=== PATIENT | female | born 1955 | race Caucasian/White ===

== ENCOUNTER 2019-01-11 10:49 | Inpatient (IN) | payer MEDICARE ==
--- NOTE | 2019-01-11 11:45 | RAD ---
Exam: Chest one view HISTORY:Fever and chills Comparison: 09/27/2009 FINDINGS: Lungs: Interstitial prominence bilaterally Cardiac silhouette:Accentuated by rotation and portable technique Pulmonary vessels: Mild prominence of pulmonary vasculature Pleural Spaces: Clear Pneumothorax: None Osseous abnormalities: None of acuity. IMPRESSION: Findings favor mild fluid overload. Correlate for evidence of CHF.
[2019-01-11] MEDS ORDERED: Azithromycin 500 MG VIAL ONE (12:09)
[2019-01-11] MEDS ORDERED: Acetaminophen 500 MG TAB ONE (12:09)
[2019-01-11] MEDS ORDERED: cefTRIAXone\\ROCEPHIN 2 GM VIAL ONE (12:09)
[2019-01-11 12:23] LABS: #Monocytes 0.7 thou/uL (0.11-0.59); #Neutrophils 6.4 thou/uL (1.40-6.50); %Basophils 0.1 % (0.0-1.0); %Eosinophils 0.2 % (0.0-10.0); %Lymphocytes 12.2 % (21.0-51.0); %Monocytes 8.4 % (0.0-10.0); %Neutrophils 79.1 % (42.0-75.0); Hemoglobin 11.2 g/dL (12.0-16.0); Mean Corpuscular HGB CONC 33.8 g/dL (32.0-36.0); Mean Corpuscular Hemoglobin 28.7 pg (27.0-31.0); Mean Corpuscular Volume 84.9 fL (78.0-98.0); Mean Platelet Volume 7.2 fL (7.4-10.4); Platelet Count 193 thou/uL (130-400); Red Blood Cell (RBC) Count 3.89 mill/uL (4.20-5.40); White Blood Cell (WBC) Count 8.1 thou/uL (4.8-10.8)
[2019-01-11 12:51] LABS: ALT (SGPT) 16 U/L (8-55); AST (SGOT) 21 U/L (5-34); Albumin 4.2 g/dL (3.4-4.8); Alkaline Phosphatase 96 U/L (40-110); Anion Gap 14 mmol/L (10-20); BUN (Urea Nitrogen) 8 mg/dL (9.8-20.1); Bilirubin, Total 0.8 mg/dL (0.2-1.2); Calc. Creatinine Clearance 0 mL/min (70-130); Calcium 9.1 mg/dL (7.8-10.44); Carbon Dioxide 24 mmol/L (23-31); Chloride 96 mmol/L (98-107); Estimated GFR-MDRD 69; Globulin 3.5 g/dL (2.4-3.5); Glucose 191 mg/dL (80-115); Lipase 47 U/L (8-78); Potassium 3.5 mmol/L (3.5-5.1); Protein, Total 7.7 g/dL (6.0-8.3); Sodium 130 mmol/L (136-145)
[2019-01-11] MEDS ORDERED: Iopamidol 370 76% 100 ML VIAL ONE (12:59)
[2019-01-11] MEDS ORDERED: Bisacodyl 5 MG TAB PO PRN (13:31)
[2019-01-11] MEDS ORDERED: Bisacodyl 10 MG SUPP PR PRN (13:31)
[2019-01-11] MEDS ORDERED: Ondansetron PF 4 MG/2 ML Vial IVP PRN (13:31)
[2019-01-11] MEDS ORDERED: Ondansetron ODT 4 MG TAB PO PRN (13:31)
[2019-01-11] MEDS ORDERED: Loperamide HCl 2 MG CAP PO PRN (13:31)
[2019-01-11] MEDS ORDERED: Labetalol HCl 100 MG/20 ML VIAL SLOW IVP PRN (13:35)
[2019-01-11] MEDS ORDERED: Melatonin 3 MG TAB PO PRN (13:35)
[2019-01-11 13:36] LABS: Bacteria/HPF None Seen HPF (None Seen); Bilirubin Negative (Negative); Blood, Urine 1+ (Negative); Clarity Clear (Clear); Glucose, Urine (Dipstick) Normal (Negative); Leukocyte Negative Leu/uL (Negative); Nitrite Negative (Negative); Protein, Urine (Dipstick) Negative (Neg-Trace); RBC/HPF 0-3 HPF (0-3); Squamous Epithelial None Seen HPF (0-3); Urobilinogen Normal mg/dL (Less than 2); WBC/HPF 0-3 HPF (0-3)
[2019-01-11] MEDS ORDERED: Sodium Chloride 0.9% 1,000 ML IV SCH (13:45)
[2019-01-11] MEDS ORDERED: cefTRIAXone Sodium 2 MG in Syringe 0 ML IVPB SCH (13:45)
--- NOTE | 2019-01-11 15:16 | CT ---
CT arteriogram chest with IV contrast and 3-D imaging HISTORY: Dyspnea. Chest pain. Fever. FINDINGS: There is good contrast opacification pulmonary arteries and thoracic aorta with normal bran virgil of the great vessels at the aortic arch. No mediastinal adenopathy or pleural fluid evident. Very subtle patchy scattered areas of groundglass parenchymal opacity involving each lung. No lobar c onsolidation or pneumothorax. IMPRESSION: No CT evidence of pulmonary embolus.
[2019-01-11 15:39] LABS: Lactic Acid 1.5 mmol/L (0.5-2.2)
[2019-01-11 17:12] VITALS: BMI 42.1
--- NOTE | 2019-01-11 18:21 | PDOC.HHP ---
Hospitalist HPI - History of Present Illness Fever, chill, cough History of Present Illness: 63-year-old female with past medical history of diabetes, hypertension, hyperlipidemia, and hypothyroidism presents with several days of worsening fever , chills, cough and lower extremity swelling. Patient states that she has been around her grandson who lives with her and he has been sick. Patient with worsening fever, chills, cough with clear productive sputum, and generalized malaise over the past several days. Patient also has had worsening lower extremity leg swelling. Today patient presented [facility] and she is found have a blood sugar of 30, patient was sent over for higher level of care. The patient does take Metformin and has had poor oral intake over the last several days. I find the patient on the medical unit she is sitting upright in bed breathing well on room air. Patient states that she is feeling significantly better after receiving IV fluids and IV antibiotics. Patient had a CTA scan of the chest, please see full report for details, there is no pulmonary embolism identified though there are bilateral groundglass opacity suggestive of walking pneumonia. Patient admitted to medical unit for further evaluation and treatment. Hospitalist ROS - Review of Systems All other systems reviewed; all pertinent +/- noted in HPI/Subj Hospitalist History - Past Medical History Source: patient Cardiac: reports: HTN. denies: CAD, CHF, Syncope Pulmonary: reports: high cholesterol, hypertension. denies: CVA/TIA/stroke, congestive heart failure, COPD, emphysema, lung disease, pulmonary embolism [employer]: denies: CVA, TIA Heme/Onc: denies: Cancer Hepatobiliary: denies: Hep A/B/C Psych: denies: Depression Musculoskeletal: reports: Osteoarthritis. denies: Other Rheumatologic: denies: Other Infectious Disease: denies: HIV ENT: reports: Allergic rhinitis Renal/: denies: Chronic renal insuff Endocrine: reports: Diabetes, Hypothyroidism - Past Surgical History Past Surgical History: reports: Cholecystectomy, Tubal Ligation, Tonsillectomy, Other (Left hip replacement) - Family History Family History: reports: diabetes mellitus - Social History Smoking Status: Former smoker (Quit over 10 years ago, denies diagnosis of COPD/ emphysema) Alcohol: reports: Rare Drugs: reports: none Living Situation: With Family Domestic Violence: Negative Activity level: independent ambulation - Exam General Appearance: NAD, awake alert Eye: PERRL, anicteric sclera ENT: normocephalic atraumatic, moist mucosa Neck: supple, symmetric, no lymphadenopathy Heart: RRR, no murmur, no gallops, no rubs Respiratory: no rales, no ronchi, normal chest expansion, no tachypnea, wheezes (very faint. Overall deminished breath sounds bilaterally secondary to body habitus) Gastrointestinal: soft, non-tender, no guarding, no rigidity Extremities - other findings: 3+ LE edema bilaterally Skin: no lesions, no rashes Neurological: cranial nerve grossly intact, normal sensation to touch, no focal deficits Musculoskeletal: normal tone, no muscle wasting, generalized weakness Psychiatric: normal affect, normal behavior, A&O x 3 Hospitalist Results - Labs Result Diagrams: 01/11/19 12:08 01/11/19 12:08 Lab results: WBC 8.1 thou/uL (4.8-10.8) 01/11/19 12:08 Hgb 11.2 g/dL (12.0-16.0) L 01/11/19 12:08 Hct 33.0 % (36.0-47.0) L 01/11/19 12:08 MCV 84.9 fL (78.0-98.0) 01/11/19 12:08 Plt Count 193 thou/uL (130-400) 01/11/19 12:08 Neutrophils % 79.1 % (42.0-75.0) H 01/11/19 12:08 Sodium 130 mmol/L (136-145) L 01/11/19 12:08 Potassium 3.5 mmol/L (3.5-5.1) 01/11/19 12:08 Chloride 96 mmol/L (98-107) L 01/11/19 12:08 Carbon Dioxide 24 mmol/L (23-31) 01/11/19 12:08 BUN 8 mg/dL (9.8-20.1) L 01/11/19 12:08 Creatinine 0.83 mg/dL (0.6-1.1) 01/11/19 12:08 Glucose 191 mg/dL (80-115) H 01/11/19 12:08 Lactic Acid 1.5 mmol/L (0.5-2.2) 01/11/19 15:13 Calcium 9.1 mg/dL (7.8-10.44) 01/11/19 12:08 Total Bilirubin 0.8 mg/dL (0.2-1.2) 01/11/19 12:08 AST 21 U/L (5-34) 01/11/19 12:08 ALT 16 U/L (8-55) 01/11/19 12:08 Alkaline Phosphatase 96 U/L (40-110) 01/11/19 12:08 B-Natriuretic Peptide 113.2 pg/mL (0-100) H 01/11/19 12:08 Serum Total Protein 7.7 g/dL (6.0-8.3) 01/11/19 12:08 Albumin 4.2 g/dL (3.4-4.8) 01/11/19 12:08 Lipase 47 U/L (8-78) 01/11/19 12:08 Urine Ketones Negative mg/dL (Negative) 01/11/19 13:10 Urine Blood 1+ (Negative) A 01/11/19 13:10 Urine Nitrite Negative (Negative) 01/11/19 13:10 Ur Leukocyte Esterase Negative Cristofer/uL (Negative) 01/11/19 13:10 Urine RBC 0-3 HPF (0-3) 01/11/19 13:10 Urine WBC 0-3 HPF (0-3) 01/11/19 13:10 Ur Squamous Epith Cells None Seen HPF (0-3) 01/11/19 13:10 Urine Bacteria None Seen HPF (None Seen) 01/11/19 13:10 - Radiology Interpretation CT scan - chest Status: image reviewed by ri Chest x-ray Status: image reviewed by ri Hospitalist H&P A/P - Problem (1) Community acquired bacterial pneumonia Code(s): J15.9 - UNSPECIFIED BACTERIAL PNEUMONIA Status: Acute (2) Walking pneumonia Code(s): J18.9 - PNEUMONIA, UNSPECIFIED ORGANISM Status: Acute (3) Shortness of breath Code(s): R06.02 - SHORTNESS OF BREATH Status: Acute (4) Cough Code(s): R05 - COUGH Status: Acute (5) Leg edema Code(s): R60.0 - LOCALIZED EDEMA Status: Acute (6) Fever Code(s): R50.9 - FEVER, UNSPECIFIED Status: Acute (7) DM (diabetes mellitus), secondary uncontrolled Code(s): E13.65 - OTHER SPECIFIED DIABETES MELLITUS WITH HYPERGLYCEMIA Status : Acute (8) HTN (hypertension) Code(s): I10 - ESSENTIAL (PRIMARY) HYPERTENSION Status: Acute (9) HLD (hyperlipidemia) Code(s): E78.5 - HYPERLIPIDEMIA, UNSPECIFIED Status: Acute (10) Hypothyroid Code(s): E03.9 - HYPOTHYROIDISM, UNSPECIFIED Status: Acute (11) Osteoarthritis Code(s): M19.90 - UNSPECIFIED OSTEOARTHRITIS, UNSPECIFIED SITE Status: Acute (12) Obesity Code(s): E66.9 - OBESITY, UNSPECIFIED Status: Acute - Plan Plan: Plan: admit to medical unit IV antibiotics IV fluids to avoid contrast induced nephropathy inhaled breathing treatments scheduled and as needed echocardiogram to evaluate for congestive heart failure BMP only minorly elevated at 113 denies history of cardiac events and denies stent/myocardial infarction/or congestive heart failure in the past lower extremity swelling, and ultrasound lower extremity to roulette DVT blood pressure control blood sugar control insulin sliding-scale low G.I. and DVT prophylaxis continue other home medications as able
[2019-01-11] MEDS ORDERED: HumaLOG 300 UNITS/3 ML VIAL SC PRN (18:32)
[2019-01-11] MEDS ORDERED: Dextrose 5% in Water 1,000 ML IV PRN (18:32)
[2019-01-11] MEDS ORDERED: Dextrose 50% Abboject 50 ML SYRINGE SLOW IVP PRN (18:32)
[2019-01-11] MEDS: HYDROcodone/Acetaminophen 5/325 mg Tablet PO PRN (20:07)
[2019-01-11] MEDS: Famotidine 20 MG TAB PO SCH (20:08)
[2019-01-11] MEDS: Sodium Chloride 0.9% 1,000 ML IV SCH (20:09)
[2019-01-11] MEDS ORDERED: Ibuprofen 200 MG TAB PO PRN (22:59)
[2019-01-11] MEDS ORDERED: Morphine 2 MG/ML SYRINGE SLOW IVP PRN (23:00)
[2019-01-12 06:17] LABS: #Lymphocytes 1.1 thou/uL (1.20-3.40); #Monocytes 0.6 thou/uL (0.11-0.59); #Neutrophils 4.6 thou/uL (1.40-6.50); %Eosinophils 0.3 % (0.0-10.0); %Lymphocytes 17.4 % (21.0-51.0); %Monocytes 8.9 % (0.0-10.0); %Neutrophils 73.5 % (42.0-75.0); Hemoglobin 9.5 g/dL (12.0-16.0); Mean Corpuscular HGB CONC 34.2 g/dL (32.0-36.0); Mean Corpuscular Hemoglobin 29.2 pg (27.0-31.0); Mean Corpuscular Volume 85.4 fL (78.0-98.0); Mean Platelet Volume 7.8 fL (7.4-10.4); Platelet Count 153 thou/uL (130-400); RBC Distribution Width 12.8 % (11.5-14.5); Red Blood Cell (RBC) Count 3.25 mill/uL (4.20-5.40); White Blood Cell (WBC) Count 6.3 thou/uL (4.8-10.8)
[2019-01-12 06:50] LABS: Anion Gap 13 mmol/L (10-20); BUN (Urea Nitrogen) 6 mg/dL (9.8-20.1); Calc. Creatinine Clearance 65 mL/min (70-130); Carbon Dioxide 18 mmol/L (23-31); Chloride 102 mmol/L (98-107); Estimated GFR-MDRD 87; Glucose 137 mg/dL (80-115); Potassium 3.5 mmol/L (3.5-5.1); Sodium 129 mmol/L (136-145)
--- NOTE | 2019-01-12 07:46 | ULT ---
EXAM: Bilateral lower extremity venous ultrasound HISTORY: Bilateral lower extremity pain and edema COMPARISON: None TECHNIQUE: Multiplanar grayscale and color Doppler images were obtained in a bilateral lower extremit y venous ultrasound. Spectral analysis of the Doppler waveforms were performed. FINDINGS: The bilateral common femoral vein, profunda femoral veins, superficial femoral veins, and p opliteal veins are normal in appearance without visible thrombus. These vessels demonstrate normal compression, flow, and augmentation. The bilateral posterior tibial veins and greater saphenous veins are patent without evidence of throm bus. IMPRESSION: No evidence of DVT.
[2019-01-12] MEDS: Famotidine 20 MG TAB PO SCH ×2 (08:09→20:18)
[2019-01-12] MEDS: HYDROcodone/Acetaminophen 7.5/325 mg Tablet PO PRN ×4 (08:15→21:37)
[2019-01-12] MEDS ORDERED: FLU VACC TS2019-20(65YR UP)/PF 180 MCG/0.5 ML SYRINGE IM ONE (09:00)
[2019-01-12] MEDS: cefTRIAXone\\ROCEPHIN 2 GM in Sodium Chloride 0.9% 100 ML IVPB SCH (11:36)
[2019-01-12] MEDS: Sodium Chloride 0.9% 1,000 ML IV SCH (11:36)
--- NOTE | 2019-01-12 15:11 | PDOC.HOSPP ---
- Subjective Subjective: Seen and examined. Patient's having more pulmonary symptoms today, struggling more to breathe and having some wheezing. Though she is saturating well. Feeling fever and chills. Patient elevated her legs overnight like I instructed her, less lower extremity edema this a.m. Ultrasound lower extremity negative for DVT. Echocardiogram pending. All questions answered in detail. - Objective Vital Signs & Weight: Vital Signs (12 hours) Temp Pulse Pulse Resp BP BP Pulse Ox 01/12/19 12:00 100.4 F H 80 20 125/74 94 L 01/12/19 08:20 90 116/58 L 01/12/19 08:00 99.0 F 91 20 116/58 L 99 01/12/19 04:00 99.3 F 91 18 97/63 93 L Pulse Ox 01/12/19 12:00 01/12/19 08:20 100 01/12/19 08:00 01/12/19 04:00 Weight Admit Weight 230 lb 5.12 oz Weight 230 lb 5.12 oz I&O: 01/11/19 01/12/19 01/13/19 06:59 06:59 06:59 Intake Total 2200 Balance 2200 Result Diagrams: 01/12/19 05:46 01/12/19 05:46 Additional Labs: Accuchecks 01/12/19 01/12/19 01/11/19 11:40 04:13 22:01 POC Glucose 137 H 145 H 189 H 01/11/19 18:42 POC Glucose 164 H Radiology Reviewed by me: Yes Hospitalist ROS - Review of Systems All other systems reviewed; all pertinent +/- noted in HPI/Subj - Medication Medications: Active Medications Generic Name Dose Route Start Last Admin Trade Name Freq PRN Reason Stop Dose Admin Hydrocodone Bitart/Acetaminophen 1 tab 01/11/19 13:31 01/11/19 20:07 [place] 5/325 PO 1 tab Q4H PRN Administration Moderate Pain (4-6) Hydrocodone Bitart/Acetaminophen 1 tab 01/11/19 13:31 01/12/19 11:44 [place] 7.5/325 PO 1 tab Q4H PRN Administration Severe Pain (7-10) Famotidine 20 mg 01/11/19 21:00 01/12/19 08:09 Pepcid PO 20 mg BID BILL Administration Ceftriaxone Sodium 2 gm/ 100 mls @ 200 mls/hr 01/12/19 12:00 01/12/19 11:36 Sodium Chloride IVPB 100 mls 1200 BILL Administration - Exam General Appearance: awake alert, ill appearing Eye: PERRL ENT: normocephalic atraumatic, moist mucosa Neck: supple, symmetric, no lymphadenopathy Heart: RRR, no murmur, no gallops, no rubs Respiratory: no rales, no ronchi, normal chest expansion, wheezes (diffuse faint wheezing) Gastrointestinal: soft, non-tender, non-distended, no guarding, no rigidity Extremities: 2+ LE edema (improving) Skin - other findings: LE errythema/ cellulitis - mild - associated with swelling Neurological: cranial nerve grossly intact, normal sensation to touch, no focal deficits Musculoskeletal: generalized weakness Psychiatric: normal affect, A&O x 3 Hosp A/P (1) Community acquired bacterial pneumonia Code(s): J15.9 - UNSPECIFIED BACTERIAL PNEUMONIA Status: Acute (2) Walking pneumonia Code(s): J18.9 - PNEUMONIA, UNSPECIFIED ORGANISM Status: Acute (3) Shortness of breath Code(s): R06.02 - SHORTNESS OF BREATH Status: Acute (4) Cough Code(s): R05 - COUGH Status: Acute (5) Leg edema Code(s): R60.0 - LOCALIZED EDEMA Status: Acute (6) Fever Code(s): R50.9 - FEVER, UNSPECIFIED Status: Acute (7) DM (diabetes mellitus), secondary uncontrolled Code(s): E13.65 - OTHER SPECIFIED DIABETES MELLITUS WITH HYPERGLYCEMIA Status : Acute (8) HTN (hypertension) Code(s): I10 - ESSENTIAL (PRIMARY) HYPERTENSION Status: Acute (9) HLD (hyperlipidemia) Code(s): E78.5 - HYPERLIPIDEMIA, UNSPECIFIED Status: Acute (10) Hypothyroid Code(s): E03.9 - HYPOTHYROIDISM, UNSPECIFIED Status: Acute (11) Osteoarthritis Code(s): M19.90 - UNSPECIFIED OSTEOARTHRITIS, UNSPECIFIED SITE Status: Acute (12) Obesity Code(s): E66.9 - OBESITY, UNSPECIFIED Status: Acute - Plan Plan: medical unit continue IV antibiotics blood culture urine culture De escalate to culture and sensitivity as able DC IV fluids to avoid volume overload, has been resuscitated and no contrast induced nephropathy have been observed renal function stable echocardiogram to evaluate for congestive heart failure BNP only minorly elevated at 113 denies history of cardiac events and denies stent/myocardial infarction/ congestive heart failure in the past lower extremity swelling ultrasound negative for DVT blood pressure control blood sugar control insulin sliding-scale low G.I. and DVT prophylaxis continue other home medications as able
[2019-01-12] MEDS: Azithromycin 250 MG in Sodium Chloride 0.9% 250 ML 250 ML IVPB SCH (15:23)
[2019-01-12] MEDS: Acetaminophen 325 MG TAB PO PRN ×2 (15:42→20:19)
[2019-01-12] MEDS: diphenhydrAMINE 25 MG CAP PO PRN (21:38)
[2019-01-13] MEDS: Acetaminophen 325 MG TAB PO PRN ×2 (05:09→18:09)
[2019-01-13 05:44] LABS: Anion Gap 13 mmol/L (10-20); BUN (Urea Nitrogen) 5 mg/dL (9.8-20.1); Calc. Creatinine Clearance 127 mL/min (70-130); Calcium 8.2 mg/dL (7.8-10.44); Carbon Dioxide 17 mmol/L (23-31); Chloride 105 mmol/L (98-107); Estimated GFR-MDRD 80; Glucose 167 mg/dL (80-115); Potassium 3.8 mmol/L (3.5-5.1); Sodium 131 mmol/L (136-145)
[2019-01-13] MEDS: HumaLOG 300 UNITS/3 ML VIAL SC PRN ×2 (05:49→13:19)
[2019-01-13 05:52] LABS: Band 20 % (5-11); Lymphocytes 19 % (21-51); MDiff Complete? YES; Mean Corpuscular HGB CONC 33.3 g/dL (32.0-36.0); Mean Corpuscular Hemoglobin 28.6 pg (27.0-31.0); Mean Platelet Volume 7.8 fL (7.4-10.4); Monocytes 2 % (0-10); Neutrophil 59 % (42-75); Platelet Count 152 thou/uL (130-400); Red Blood Cell (RBC) Count 3.51 mill/uL (4.20-5.40); White Blood Cell (WBC) Count 5.2 thou/uL (4.8-10.8)
[2019-01-13] MEDS: HYDROcodone/Acetaminophen 7.5/325 mg Tablet PO PRN ×2 (07:23→20:34)
[2019-01-13] MEDS: diphenhydrAMINE 25 MG CAP PO PRN ×2 (07:23→20:33)
[2019-01-13] MEDS: Famotidine 20 MG TAB PO SCH ×2 (08:36→20:34)
--- NOTE | 2019-01-13 11:58 | PDOC.HOSPP ---
- Subjective Subjective: Seen and examined. Patient states that overall she is feeling better, though she is still symptomatic from fever and chills. Found to be bacteremic with one out of two blood cultures being positive for Gram-positive cocci in clusters. Will repeat blood cultures to ensure sterilization of the blood versus possible contaminant. - Objective Vital Signs & Weight: Vital Signs (12 hours) Temp Pulse Resp BP Pulse Ox 01/13/19 11:29 100.0 F H 93 20 105/52 L 95 01/13/19 07:54 101.8 F H 99 20 102/66 95 01/13/19 06:00 98.5 F 01/13/19 04:30 102.1 F H 105 H 18 143/75 H 94 L 01/13/19 00:00 99.0 F 87 18 104/68 94 L Weight Admit Weight 230 lb 5.12 oz Weight 230 lb 5.12 oz I&O: 01/12/19 01/13/19 01/14/19 06:59 06:59 06:59 Intake Total 2199 2039 Balance 2199 2039 Result Diagrams: 01/13/19 04:58 01/13/19 04:58 Additional Labs: Accuchecks 01/13/19 01/12/19 01/12/19 05:01 19:23 16:22 POC Glucose 185 H 173 H 131 H Radiology Reviewed by me: Yes Hospitalist ROS - Review of Systems All other systems reviewed; all pertinent +/- noted in HPI/Subj - Medication Medications: Active Medications Generic Name Dose Route Start Last Admin Trade Name Freq PRN Reason Stop Dose Admin Acetaminophen 650 mg 01/11/19 13:31 01/13/19 05:09 Tylenol PO 650 mg Q4H PRN Administration Headache/Fever/Mild Pain (1-3) Hydrocodone Bitart/Acetaminophen 1 tab 01/11/19 13:31 01/11/19 20:07 [place] 5/325 PO 1 tab Q4H PRN Administration Moderate Pain (4-6) Hydrocodone Bitart/Acetaminophen 1 tab 01/11/19 13:31 01/13/19 07:23 [place] 7.5/325 PO 1 tab Q4H PRN Administration Severe Pain (7-10) Diphenhydramine HCl 25 mg 01/11/19 13:35 01/13/19 07:23 Benadryl PO 25 mg Q6H PRN Administration Itching & Insomnia Famotidine 20 mg 01/11/19 21:00 01/13/19 08:36 Pepcid PO 20 mg BID BILL Administration Azithromycin 250 mg/ Sodium 250 mls @ 250 mls/hr 01/12/19 15:00 01/12/19 15: 23 Chloride IVPB 250 mls 1500 BILL Administration Ceftriaxone Sodium 2 gm/ 100 mls @ 200 mls/hr 01/12/19 12:00 01/12/19 11:36 Sodium Chloride IVPB 100 mls 1200 BILL Administration Insulin Human Lispro 0 units 01/11/19 18:32 01/13/19 05:49 Humalog SC 2 unit .MILD SLIDING SCALE PRN Administration Mild Correctional Scale - Exam General Appearance: NAD, awake alert Eye: anicteric sclera ENT: normocephalic atraumatic, moist mucosa Neck: supple, symmetric, no lymphadenopathy Heart: RRR, no murmur, no gallops, no rubs Respiratory: CTAB, no rales, no ronchi, no tachypnea, wheezes Gastrointestinal: soft, non-tender, normal bowel sounds, no guarding, no rigidity Extremities: 1+ LE edema (improving) Skin: no lesions, no rashes Neurological: cranial nerve grossly intact, normal sensation to touch, no focal deficits Musculoskeletal: generalized weakness Psychiatric: normal affect, A&O x 3 Hosp A/P (1) Community acquired bacterial pneumonia Code(s): J15.9 - UNSPECIFIED BACTERIAL PNEUMONIA Status: Acute (2) Walking pneumonia Code(s): J18.9 - PNEUMONIA, UNSPECIFIED ORGANISM Status: Acute (3) Shortness of breath Code(s): R06.02 - SHORTNESS OF BREATH Status: Acute (4) Cough Code(s): R05 - COUGH Status: Acute (5) Leg edema Code(s): R60.0 - LOCALIZED EDEMA Status: Acute (6) Fever Code(s): R50.9 - FEVER, UNSPECIFIED Status: Acute (7) DM (diabetes mellitus), secondary uncontrolled Code(s): E13.65 - OTHER SPECIFIED DIABETES MELLITUS WITH HYPERGLYCEMIA Status : Acute (8) HTN (hypertension) Code(s): I10 - ESSENTIAL (PRIMARY) HYPERTENSION Status: Acute (9) HLD (hyperlipidemia) Code(s): E78.5 - HYPERLIPIDEMIA, UNSPECIFIED Status: Acute (10) Hypothyroid Code(s): E03.9 - HYPOTHYROIDISM, UNSPECIFIED Status: Acute (11) Osteoarthritis Code(s): M19.90 - UNSPECIFIED OSTEOARTHRITIS, UNSPECIFIED SITE Status: Acute (12) Obesity Code(s): E66.9 - OBESITY, UNSPECIFIED Status: Acute - Plan Plan: medical unit continue IV antibiotics blood culture - 1/2 positive for gram pos cocci in cluster - repeat to ensure sterilization of blood vs possible contaminant urine culture - no growth to date De escalate to culture and sensitivity as able DC IV fluids to avoid volume overload, has been resuscitated and no contrast induced nephropathy have been observed renal function stable echocardiogram with preserved EF of 55% BNP only minorly elevated at 113 denies history of cardiac events and denies stent/myocardial infarction/ congestive heart failure in the past lower extremity swelling ultrasound negative for DVT blood pressure control blood sugar control insulin sliding-scale low G.I. and DVT prophylaxis continue other home medications as able
[2019-01-13] MEDS: cefTRIAXone\\ROCEPHIN 2 GM in Sodium Chloride 0.9% 100 ML IVPB SCH (13:17)
[2019-01-13] MEDS: Azithromycin 250 MG in Sodium Chloride 0.9% 250 ML 250 ML IVPB SCH (15:00)
[2019-01-14] MEDS ORDERED: Cyclobenzaprine 10 MG TAB PO PRN (02:29)
[2019-01-14] MEDS ORDERED: Cyclobenzaprine 10 MG TAB PO SCH (02:30)
[2019-01-14] MEDS: HYDROcodone/Acetaminophen 5/325 mg Tablet PO PRN (02:33)
[2019-01-14] MEDS: diphenhydrAMINE 25 MG CAP PO PRN ×2 (02:33→20:25)
[2019-01-14] MEDS: Benzonatate 100 MG CAP PO PRN ×2 (05:01→20:25)
[2019-01-14] MEDS: Famotidine 20 MG TAB PO SCH ×2 (07:50→20:14)
[2019-01-14] MEDS: HYDROcodone/Acetaminophen 7.5/325 mg Tablet PO PRN (09:58)
--- NOTE | 2019-01-14 10:18 | PDOC.HOSPP ---
- Subjective Subjective: Seen and examined. Last fever was reported on 01/13/2019 at 1600 hrs. with temperature of 101.6. Fever seems to is broken since then. Responding to IV antibiotics. Patient still feeling subjective chills. Breathing well on room air. Improved lower extremity edema. All questions answered in detail. - Objective Vital Signs & Weight: Vital Signs (12 hours) Temp Pulse Resp BP Pulse Ox 01/14/19 07:07 98.2 F 82 18 123/58 L 96 01/14/19 03:44 98.1 F 75 17 111/67 97 01/14/19 02:45 98.9 F 74 17 136/74 95 01/14/19 00:00 98.9 F 83 18 104/67 98 Weight Admit Weight 230 lb 5.12 oz Weight 230 lb 5.12 oz I&O: 01/13/19 01/14/19 01/15/19 06:59 06:59 06:59 Intake Total 0 1190 Balance 0 1190 Result Diagrams: 01/13/19 04:58 01/13/19 04:58 Additional Labs: Accuchecks 01/14/19 01/13/19 01/13/19 05:02 20:13 16:39 POC Glucose 129 H 185 H 157 H 01/13/19 11:34 POC Glucose 173 H Radiology Reviewed by me: Yes Hospitalist ROS - Review of Systems All other systems reviewed; all pertinent +/- noted in HPI/Subj - Medication Medications: Active Medications Generic Name Dose Route Start Last Admin Trade Name Freq PRN Reason Stop Dose Admin Acetaminophen 650 mg 01/11/19 13:31 01/13/19 18:09 Tylenol PO 650 mg Q4H PRN Administration Headache/Fever/Mild Pain (1-3) Hydrocodone Bitart/Acetaminophen 1 tab 01/11/19 13:31 01/14/19 02:33 [place] 5/325 PO 1 tab Q4H PRN Administration Moderate Pain (4-6) Hydrocodone Bitart/Acetaminophen 1 tab 01/11/19 13:31 01/14/19 09:58 [place] 7.5/325 PO 1 tab Q4H PRN Administration Severe Pain (7-10) Benzonatate 100 mg 01/11/19 13:35 01/14/19 05:01 Tessalon PO 100 mg Q4H PRN Administration Cough Diphenhydramine HCl 25 mg 01/11/19 13:35 01/14/19 02:33 Benadryl PO 25 mg Q6H PRN Administration Itching & Insomnia Famotidine 20 mg 01/11/19 21:00 01/14/19 07:50 Pepcid PO 20 mg BID BILL Administration Azithromycin 250 mg/ Sodium 250 mls @ 250 mls/hr 01/12/19 15:00 01/13/19 15: 00 Chloride IVPB 250 mls 1500 BILL Administration Ceftriaxone Sodium 2 gm/ 100 mls @ 200 mls/hr 01/12/19 12:00 01/13/19 13:17 Sodium Chloride IVPB 100 mls 1200 BILL Administration Insulin Human Lispro 0 units 01/11/19 18:32 01/13/19 13:19 Humalog SC 2 unit .MILD SLIDING SCALE PRN Administration Mild Correctional Scale - Exam General Appearance: NAD, awake alert Eye: anicteric sclera ENT: normocephalic atraumatic, moist mucosa Neck: supple, symmetric, no lymphadenopathy Heart: no murmur, no gallops, no rubs Respiratory: CTAB, no wheezes, no rales, no ronchi, normal chest expansion Gastrointestinal: soft, non-tender, non-distended, no guarding, no rigidity Extremities: no clubbing, no edema Skin: no lesions, no rashes Neurological: cranial nerve grossly intact, no focal deficits Musculoskeletal: generalized weakness Psychiatric: normal affect, A&O x 3 Hosp A/P (1) Community acquired bacterial pneumonia Code(s): J15.9 - UNSPECIFIED BACTERIAL PNEUMONIA Status: Acute (2) Walking pneumonia Code(s): J18.9 - PNEUMONIA, UNSPECIFIED ORGANISM Status: Acute (3) Shortness of breath Code(s): R06.02 - SHORTNESS OF BREATH Status: Acute (4) Cough Code(s): R05 - COUGH Status: Acute (5) Leg edema Code(s): R60.0 - LOCALIZED EDEMA Status: Acute (6) Fever Code(s): R50.9 - FEVER, UNSPECIFIED Status: Acute (7) DM (diabetes mellitus), secondary uncontrolled Code(s): E13.65 - OTHER SPECIFIED DIABETES MELLITUS WITH HYPERGLYCEMIA Status : Acute (8) HTN (hypertension) Code(s): I10 - ESSENTIAL (PRIMARY) HYPERTENSION Status: Acute (9) HLD (hyperlipidemia) Code(s): E78.5 - HYPERLIPIDEMIA, UNSPECIFIED Status: Acute (10) Hypothyroid Code(s): E03.9 - HYPOTHYROIDISM, UNSPECIFIED Status: Acute (11) Osteoarthritis Code(s): M19.90 - UNSPECIFIED OSTEOARTHRITIS, UNSPECIFIED SITE Status: Acute (12) Obesity Code(s): E66.9 - OBESITY, UNSPECIFIED Status: Acute - Plan Plan: medical unit continue IV antibiotics If patient's fever cannot be broken or bacteremia cannot be sterilized would consider ID consult blood culture - 1/2 positive for gram pos cocci in cluster - repeat to ensure sterilization of blood vs possible contaminant urine culture - no growth to date De escalate to culture and sensitivity as able DC IV fluids to avoid volume overload, has been resuscitated and no contrast induced nephropathy have been observed renal function stable echocardiogram with preserved EF of 55% BNP only minorly elevated at 113 denies history of cardiac events and denies stent/myocardial infarction/ congestive heart failure in the past lower extremity swelling ultrasound negative for DVT blood pressure control blood sugar control - insulin sliding-scale - low G.I. and DVT prophylaxis continue other home medications as able
[2019-01-14] MEDS: cefTRIAXone\\ROCEPHIN 2 GM in Sodium Chloride 0.9% 100 ML IVPB SCH (11:31)
[2019-01-14] MEDS: HumaLOG 300 UNITS/3 ML VIAL SC PRN (12:32)
[2019-01-14] MEDS ORDERED: Haloperidol Lactate 5 MG/ML VIAL IM PRN (17:46)
[2019-01-14] MEDS ORDERED: diphenhydrAMINE 25 MG in Sodium Chloride 0.9% 50 ML IVPB PRN (17:46)
[2019-01-14] MEDS: Acetaminophen 325 MG TAB PO PRN (20:14)
[2019-01-14] MEDS: Azithromycin 250 MG in Sodium Chloride 0.9% 250 ML 250 ML IVPB SCH (22:31)
[2019-01-15] MEDS: Famotidine 20 MG TAB PO SCH ×2 (09:10→20:40)
--- NOTE | 2019-01-15 10:39 | PDOC.HOSPP ---
- Subjective Subjective: Seen and examined. Patient's blood culture found to be Micrococcus which is most likely consistent with the skin contaminant. Repeat blood cultures are negative for growth today. Patient does get confused in the afternoons per nursing staff, likely element of delirium. Patient is very forgetful and does not remember things that of been told her from even the prior day. Patient knows self. Patient knows she is in the hospital. Patient knows why she came the [facility] and can tell me that she came with a cough and productive sputum. When I asked her what diagnosis we have diagnosed her with and what we are doing to get her better, she is unable to tell me that she has pneumonia and she does not remember that she was placed on antibiotics. Patient is home alone at nights and possibly is unsafe for her to go home alone to this environment. Ordered for daily physical therapy and occupational therapy. - Objective Vital Signs & Weight: Vital Signs (12 hours) Temp Pulse Resp BP BP Pulse Ox 01/15/19 08:00 98.6 F 96 18 122/86 95 01/15/19 04:00 98.6 F 83 20 143/81 H 97 01/15/19 00:00 100.3 F H 98 20 101/65 98 Weight Admit Weight 230 lb 5.12 oz Weight 230 lb 5.12 oz I&O: 01/14/19 01/15/19 01/16/19 06:59 06:59 06:59 Intake Total 1190 960 Balance 1190 960 Result Diagrams: 01/13/19 04:58 01/13/19 04:58 Additional Labs: Accuchecks 01/15/19 01/14/19 01/14/19 04:35 16:22 11:44 POC Glucose 148 H 151 H 182 H Radiology Reviewed by me: Yes Hospitalist ROS - Review of Systems All other systems reviewed; all pertinent +/- noted in HPI/Subj - Medication Medications: Active Medications Generic Name Dose Route Start Last Admin Trade Name Freq PRN Reason Stop Dose Admin Acetaminophen 650 mg 01/11/19 13:31 01/14/19 20:14 Tylenol PO 650 mg Q4H PRN Administration Headache/Fever/Mild Pain (1-3) Hydrocodone Bitart/Acetaminophen 1 tab 01/11/19 13:31 01/14/19 02:33 [place] 5/325 PO 1 tab Q4H PRN Administration Moderate Pain (4-6) Hydrocodone Bitart/Acetaminophen 1 tab 01/11/19 13:31 01/14/19 09:58 [place] 7.5/325 PO 1 tab Q4H PRN Administration Severe Pain (7-10) Benzonatate 100 mg 01/11/19 13:35 01/14/19 20:25 Tessalon PO 100 mg Q4H PRN Administration Cough Cyclobenzaprine HCl 10 mg 01/14/19 02:29 01/14/19 11:24 Flexeril PO 10 mg Q8H PRN Administration Muscle Spasm Diphenhydramine HCl 25 mg 01/11/19 13:35 01/14/19 20:25 Benadryl PO 25 mg Q6H PRN Administration Itching & Insomnia Famotidine 20 mg 01/11/19 21:00 01/15/19 09:10 Pepcid PO 20 mg BID BILL Administration Haloperidol Lactate 5 mg 01/14/19 17:46 01/14/19 22:29 Haldol IM 5 mg Q4H PRN Administration Agitation Ceftriaxone Sodium 2 gm/ 100 mls @ 200 mls/hr 01/12/19 12:00 01/14/19 11:31 Sodium Chloride IVPB 100 mls 1200 BILL Administration Insulin Human Lispro 0 units 01/11/19 18:32 01/14/19 12:32 Humalog SC 2 unit .MILD SLIDING SCALE PRN Administration Mild Correctional Scale - Exam General Appearance: NAD, awake alert Eye: PERRL ENT: normocephalic atraumatic, moist mucosa Neck: supple, symmetric, no lymphadenopathy Heart: no murmur, no gallops, no rubs Respiratory: no rales, normal chest expansion, no tachypnea, rhonchi, wheezes ( Persistent moderate diffuse) Respiratory - other findings: Breathing comfortably on room air Gastrointestinal: soft, non-tender, non-distended, no guarding, no rigidity Extremities: no edema Skin: no lesions, no rashes Neurological: cranial nerve grossly intact, normal sensation to touch, no focal deficits Musculoskeletal: no muscle wasting, generalized weakness Psychiatric: normal affect, normal behavior, oriented to person, oriented to place Hosp A/P (1) Community acquired bacterial pneumonia Code(s): J15.9 - UNSPECIFIED BACTERIAL PNEUMONIA Status: Acute (2) Walking pneumonia Code(s): J18.9 - PNEUMONIA, UNSPECIFIED ORGANISM Status: Acute (3) Shortness of breath Code(s): R06.02 - SHORTNESS OF BREATH Status: Acute (4) Cough Code(s): R05 - COUGH Status: Acute (5) Leg edema Code(s): R60.0 - LOCALIZED EDEMA Status: Acute (6) Fever Code(s): R50.9 - FEVER, UNSPECIFIED Status: Acute (7) DM (diabetes mellitus), secondary uncontrolled Code(s): E13.65 - OTHER SPECIFIED DIABETES MELLITUS WITH HYPERGLYCEMIA Status : Acute (8) HTN (hypertension) Code(s): I10 - ESSENTIAL (PRIMARY) HYPERTENSION Status: Acute (9) HLD (hyperlipidemia) Code(s): E78.5 - HYPERLIPIDEMIA, UNSPECIFIED Status: Acute (10) Hypothyroid Code(s): E03.9 - HYPOTHYROIDISM, UNSPECIFIED Status: Acute (11) Osteoarthritis Code(s): M19.90 - UNSPECIFIED OSTEOARTHRITIS, UNSPECIFIED SITE Status: Acute (12) Obesity Code(s): E66.9 - OBESITY, UNSPECIFIED Status: Acute - Plan Plan: medical unit Continue PT/ OT - may benefit from SNF placement to regain her independence and strength continue IV antibiotics If patient's fever cannot be broken or bacteremia cannot be sterilized would consider ID consult blood culture - 1/2 Micrococcus with rosa skin contaminant urine culture - no growth to date De escalate to culture and sensitivity as able DC IV fluids to avoid volume overload, has been resuscitated and no contrast induced nephropathy have been observed renal function stable echocardiogram with preserved EF of 55% BNP only minorly elevated at 113 denies history of cardiac events and denies stent/myocardial infarction/ congestive heart failure in the past lower extremity swelling ultrasound negative for DVT blood pressure control blood sugar control - insulin sliding-scale - low G.I. and DVT prophylaxis continue other home medications as able
[2019-01-15] MEDS: cefTRIAXone\\ROCEPHIN 2 GM in Sodium Chloride 0.9% 100 ML IVPB SCH (11:22)
[2019-01-15] MEDS: HumaLOG 300 UNITS/3 ML VIAL SC PRN (11:33)
[2019-01-15] MEDS ORDERED: Benzonatate 100 MG CAP PO PRN (17:27)
[2019-01-15] MEDS: Azithromycin 250 MG in Sodium Chloride 0.9% 250 ML 250 ML IVPB SCH (20:40)
[2019-01-15] MEDS: diphenhydrAMINE 25 MG CAP PO PRN (20:40)
[2019-01-15] MEDS: HYDROcodone/Acetaminophen 7.5/325 mg Tablet PO PRN (20:40)
[2019-01-16] MEDS: Levothyroxine Sodium 125 MCG TAB PO SCH (04:06)
[2019-01-16] MEDS: HYDROcodone/Acetaminophen 5/325 mg Tablet PO PRN (04:06)
[2019-01-16] MEDS: Montelukast Sodium 10 mg Tablet PO SCH (08:29)
[2019-01-16] MEDS: Bisoprolol Fumarate 5 MG TAB PO SCH (08:29)
[2019-01-16] MEDS: Losartan/Hydrochlorothiazide 100 mg/25 mg Tablet PO SCH (08:29)
[2019-01-16] MEDS: Venlafaxine HCl XR 75 MG CAP PO SCH (08:29)
[2019-01-16] MEDS: metFORMIN 500 MG TAB PO SCH ×2 (08:29→16:55)
[2019-01-16] MEDS ORDERED: Non-Formulary Item 1 EACH (Atorvastatin Calcium [Atorvastatin Calcium] 80 MG) PO SCH (09:00)
--- NOTE | 2019-01-16 10:22 | PDOC.HOSPP ---
- Subjective Subjective: Seen and examined. Patient breathing well on room air. Overall clinically improving. Patient's mentation remains limiting factor at this point. Patient impulsive. Getting out of bed without warning. Fall risk. Patient is not been formally diagnosed with dementia however she is very forgetful from day to day and does not remember even simple facts. Patient having occasional confusion and delirium, patient was convinced last night that her dog was in the room with her and that it went missing. Patient's was able to reorient her and state that the dog was never in the hospital and the patient did improve. Will start mood stabilizing medication to keep the patient calm at night. - Objective Vital Signs & Weight: Vital Signs (12 hours) Temp Pulse Resp BP Pulse Ox 01/16/19 08:00 97.5 F L 65 20 139/80 97 01/16/19 07:34 95 01/16/19 04:00 98.2 F 64 20 118/66 95 Weight Admit Weight 230 lb 5.12 oz Weight 230 lb 5.12 oz I&O: 01/15/19 01/16/19 01/17/19 06:59 06:59 06:59 Intake Total 960 1560 Output Total 2 Balance 960 1558 Result Diagrams: 01/13/19 04:58 01/13/19 04:58 Additional Labs: Accuchecks 01/16/19 01/15/19 01/15/19 04:26 19:08 15:28 POC Glucose 150 H 239 H 150 H 01/15/19 11:33 POC Glucose 215 H Radiology Reviewed by me: Yes Hospitalist ROS - Review of Systems All other systems reviewed; all pertinent +/- noted in HPI/Subj - Medication Medications: Active Medications Generic Name Dose Route Start Last Admin Trade Name Freq PRN Reason Stop Dose Admin Acetaminophen 650 mg 01/11/19 13:31 01/14/19 20:14 Tylenol PO 650 mg Q4H PRN Administration Headache/Fever/Mild Pain (1-3) Hydrocodone Bitart/Acetaminophen 1 tab 01/11/19 13:31 01/16/19 04:06 [place] 5/325 PO 1 tab Q4H PRN Administration Moderate Pain (4-6) Hydrocodone Bitart/Acetaminophen 1 tab 01/11/19 13:31 01/15/19 20:40 [place] 7.5/325 PO 1 tab Q4H PRN Administration Severe Pain (7-10) Benzonatate 100 mg 01/11/19 13:35 01/14/19 20:25 Tessalon PO 100 mg Q4H PRN Administration Cough Bisoprolol Fumarate 5 mg 01/16/19 09:00 01/16/19 08:29 Zebeta PO 5 mg DAILY BILL Administration Cyclobenzaprine HCl 10 mg 01/14/19 02:29 01/14/19 11:24 Flexeril PO 10 mg Q8H PRN Administration Muscle Spasm Diphenhydramine HCl 25 mg 01/11/19 13:35 01/15/19 20:40 Benadryl PO 25 mg Q6H PRN Administration Itching & Insomnia Famotidine 20 mg 01/11/19 21:00 01/15/19 20:40 Pepcid PO 20 mg BID BILL Administration HCTZ/Losartan Potassium 1 tab 01/16/19 09:00 01/16/19 08:29 Hyzaar 100/25 PO 1 tab QAM BILL Administration Haloperidol Lactate 5 mg 01/14/19 17:46 01/14/19 22:29 Haldol IM 5 mg Q4H PRN Administration Agitation Ceftriaxone Sodium 2 gm/ 100 mls @ 200 mls/hr 01/12/19 12:00 01/15/19 11:22 Sodium Chloride IVPB 100 mls 1200 BILL Administration Azithromycin 250 mg/ Sodium 250 mls @ 250 mls/hr 01/15/19 22:00 01/15/19 20: 40 Chloride IVPB 250 mls 2200 BILL Administration Insulin Human Lispro 0 units 01/11/19 18:32 01/15/19 11:33 Humalog SC 3 unit .MILD SLIDING SCALE PRN Administration Mild Correctional Scale Levothyroxine Sodium 125 mcg 01/16/19 06:00 01/16/19 04:06 Synthroid PO 125 mcg 0600 BILL Administration Metformin HCl 500 mg 01/16/19 08:00 01/16/19 08:29 Glucophage PO 500 mg BID-WM BILL Administration Montelukast Sodium 10 mg 01/16/19 09:00 01/16/19 08:29 Singulair PO 10 mg DAILY BILL Administration Pantoprazole Sodium 40 mg 01/16/19 09:00 01/16/19 08:29 Protonix PO 40 mg DAILY BILL Administration Venlafaxine HCl 75 mg 01/16/19 09:00 01/16/19 08:29 Effexor Xr PO 75 mg DAILY BILL Administration - Exam General Appearance: NAD, awake alert Eye: anicteric sclera ENT: normocephalic atraumatic, moist mucosa Neck: supple, symmetric, no lymphadenopathy Heart: no murmur, no gallops, no rubs Respiratory: CTAB, no rales, no ronchi, wheezes (Improved wheezing, now only faintly heard on the right) Gastrointestinal: soft, non-tender, normal bowel sounds, no rigidity Extremities: 1+ LE edema Skin: no lesions, no rashes Neurological: cranial nerve grossly intact, normal sensation to touch, no focal deficits Musculoskeletal: generalized weakness Psychiatric: A&O x 3, flat affect Psychiatric - other findings: Impulsive, does not follow commands consistently getting out of bed without Hosp A/P (1) Community acquired bacterial pneumonia Code(s): J15.9 - UNSPECIFIED BACTERIAL PNEUMONIA Status: Acute (2) Walking pneumonia Code(s): J18.9 - PNEUMONIA, UNSPECIFIED ORGANISM Status: Acute (3) Shortness of breath Code(s): R06.02 - SHORTNESS OF BREATH Status: Acute (4) Cough Code(s): R05 - COUGH Status: Acute (5) Leg edema Code(s): R60.0 - LOCALIZED EDEMA Status: Acute (6) Fever Code(s): R50.9 - FEVER, UNSPECIFIED Status: Acute (7) DM (diabetes mellitus), secondary uncontrolled Code(s): E13.65 - OTHER SPECIFIED DIABETES MELLITUS WITH HYPERGLYCEMIA Status : Acute (8) HTN (hypertension) Code(s): I10 - ESSENTIAL (PRIMARY) HYPERTENSION Status: Acute (9) HLD (hyperlipidemia) Code(s): E78.5 - HYPERLIPIDEMIA, UNSPECIFIED Status: Acute (10) Hypothyroid Code(s): E03.9 - HYPOTHYROIDISM, UNSPECIFIED Status: Acute (11) Osteoarthritis Code(s): M19.90 - UNSPECIFIED OSTEOARTHRITIS, UNSPECIFIED SITE Status: Acute (12) Obesity Code(s): E66.9 - OBESITY, UNSPECIFIED Status: Acute - Plan Plan: medical unit Continue PT/ OT - may benefit from SNF placement to regain her independence and strength continue IV antibiotics, consider de escalation to oral regimen on D/c with coverage for bronchitis/ community acquired PNA. Would need atypicals coverage Repeat blood cultures confirmed sterilization of the blood blood culture - 1/2 Micrococcus with rosa skin contaminant urine culture - no growth to date De escalate to culture and sensitivity as able DC IV fluids to avoid volume overload, has been resuscitated and no contrast induced nephropathy have been observed renal function stable echocardiogram with preserved EF of 55% BNP only minorly elevated at 113 denies history of cardiac events and denies stent/myocardial infarction/ congestive heart failure in the past lower extremity swelling ultrasound negative for DVT blood pressure control blood sugar control - insulin sliding-scale - low Start Mood stabilizing medication at night to help keep the patient calm, will aid in sleep G.I. and DVT prophylaxis continue other home medications as able
[2019-01-16] MEDS: cefTRIAXone\\ROCEPHIN 2 GM in Sodium Chloride 0.9% 100 ML IVPB SCH (11:56)
[2019-01-16] MEDS ORDERED: Atorvastatin Calcium 40 MG TAB PO SCH (12:00)
[2019-01-16] MEDS: Famotidine 20 MG TAB PO SCH (20:04)
[2019-01-16] MEDS: HYDROcodone/Acetaminophen 7.5/325 mg Tablet PO PRN (20:05)
[2019-01-16] MEDS: Azithromycin 250 MG in Sodium Chloride 0.9% 250 ML 250 ML IVPB SCH (21:32)
[2019-01-17] MEDS: Levothyroxine Sodium 125 MCG TAB PO SCH (05:23)
[2019-01-17] MEDS: Montelukast Sodium 10 mg Tablet PO SCH (08:35)
[2019-01-17] MEDS: Famotidine 20 MG TAB PO SCH ×2 (08:35→19:36)
[2019-01-17] MEDS: Atorvastatin Calcium 40 MG TAB PO SCH (08:37)
[2019-01-17] MEDS: Bisoprolol Fumarate 5 MG TAB PO SCH (08:37)
[2019-01-17] MEDS: Losartan/Hydrochlorothiazide 100 mg/25 mg Tablet PO SCH (08:38)
[2019-01-17] MEDS: Venlafaxine HCl XR 75 MG CAP PO SCH (08:38)
[2019-01-17] MEDS: metFORMIN 500 MG TAB PO SCH ×2 (08:38→17:27)
[2019-01-17] MEDS: cefTRIAXone\\ROCEPHIN 2 GM in Sodium Chloride 0.9% 100 ML IVPB SCH (11:40)
--- NOTE | 2019-01-17 13:11 | PDOC.HOSPP ---
- Subjective Encounter Date: 01/17/19 Encounter Time: 13:10 Subjective: Says she is feeling better. Says she is about 75% back to normal. Still has a cough. Has been up and walking around today. No major problems. Eating fairly well, but appetite still down. She lives at home with her . Her son and his family have also moved back in. - Objective Vital Signs & Weight: Vital Signs (12 hours) Temp Pulse Resp BP Pulse Ox 01/17/19 11:54 97.8 F 78 20 150/62 H 97 01/17/19 08:00 98.3 F 67 16 133/75 98 01/17/19 07:45 98.3 F 67 16 133/75 98 Weight Admit Weight 230 lb 5.12 oz Weight 230 lb 5.12 oz I&O: 01/16/19 01/17/19 01/18/19 06:59 06:59 06:59 Intake Total 1560 1180 Output Total 2 Balance 1558 1180 Result Diagrams: 01/13/19 04:58 01/13/19 04:58 Additional Labs: Accuchecks 01/17/19 01/17/19 01/16/19 12:00 04:04 19:59 POC Glucose 162 H 146 H 152 H 01/16/19 01/16/19 19:36 16:35 POC Glucose 151 H 163 H Hospitalist ROS - Medication Medications: Active Medications Generic Name Dose Route Start Last Admin Trade Name Freq PRN Reason Stop Dose Admin Acetaminophen 650 mg 01/11/19 13:31 01/14/19 20:14 Tylenol PO 650 mg Q4H PRN Administration Headache/Fever/Mild Pain (1-3) Hydrocodone Bitart/Acetaminophen 1 tab 01/11/19 13:31 01/16/19 04:06 [place] 5/325 PO 1 tab Q4H PRN Administration Moderate Pain (4-6) Hydrocodone Bitart/Acetaminophen 1 tab 01/11/19 13:31 01/16/19 20:05 [place] 7.5/325 PO 1 tab Q4H PRN Administration Severe Pain (7-10) Atorvastatin Calcium 80 mg 01/17/19 09:00 01/17/19 08:37 Lipitor PO 80 mg QAM BILL Administration Benzonatate 100 mg 01/11/19 13:35 01/14/19 20:25 Tessalon PO 100 mg Q4H PRN Administration Cough Bisoprolol Fumarate 5 mg 01/16/19 09:00 01/17/19 08:37 Zebeta PO 5 mg DAILY BILL Administration Cyclobenzaprine HCl 10 mg 01/14/19 02:29 01/14/19 11:24 Flexeril PO 10 mg Q8H PRN Administration Muscle Spasm Diphenhydramine HCl 25 mg 01/11/19 13:35 01/15/19 20:40 Benadryl PO 25 mg Q6H PRN Administration Itching & Insomnia Famotidine 20 mg 01/11/19 21:00 01/17/19 08:35 Pepcid PO 20 mg BID BILL Administration HCTZ/Losartan Potassium 1 tab 01/16/19 09:00 01/17/19 08:38 Hyzaar 100/25 PO 1 tab QAM BILL Administration Haloperidol Lactate 5 mg 01/14/19 17:46 01/14/19 22:29 Haldol IM 5 mg Q4H PRN Administration Agitation Ceftriaxone Sodium 2 gm/ 100 mls @ 200 mls/hr 01/12/19 12:00 01/17/19 11:40 Sodium Chloride IVPB 100 mls 1200 BILL Administration Azithromycin 250 mg/ Sodium 250 mls @ 250 mls/hr 01/15/19 22:00 01/16/19 21: 32 Chloride IVPB 250 mls 2200 BILL Administration Insulin Human Lispro 0 units 01/11/19 18:32 01/15/19 11:33 Humalog SC 3 unit .MILD SLIDING SCALE PRN Administration Mild Correctional Scale Levothyroxine Sodium 125 mcg 01/16/19 06:00 01/17/19 05:23 Synthroid PO 125 mcg 0600 BILL Administration Metformin HCl 500 mg 01/16/19 08:00 01/17/19 08:38 Glucophage PO 500 mg BID-WM BILL Administration Montelukast Sodium 10 mg 01/16/19 09:00 01/17/19 08:35 Singulair PO 10 mg DAILY BILL Administration Pantoprazole Sodium 40 mg 01/16/19 09:00 01/17/19 08:38 Protonix PO 40 mg DAILY BILL Administration Quetiapine Fumarate 25 mg 01/16/19 21:00 01/16/19 20:05 Seroquel PO 25 mg HS BILL Administration Venlafaxine HCl 75 mg 01/16/19 09:00 01/17/19 08:38 Effexor Xr PO 75 mg DAILY BILL Administration - Exam General Appearance: NAD, awake alert General - other findings: Obese Respiratory - other findings: Significant right basilar rales. Gastrointestinal: soft, non-tender, non-distended, normal bowel sounds, no palpable masses, no hepatomegaly, no splenomegaly, no bruit Extremities - other findings: trace edema. Musculoskeletal: generalized weakness Psychiatric: normal affect, normal behavior, A&O x 3 Hosp A/P (1) Community acquired bacterial pneumonia Code(s): J15.9 - UNSPECIFIED BACTERIAL PNEUMONIA Status: Acute (2) DM (diabetes mellitus), secondary uncontrolled Code(s): E13.65 - OTHER SPECIFIED DIABETES MELLITUS WITH HYPERGLYCEMIA Status : Acute (3) Fever Code(s): R50.9 - FEVER, UNSPECIFIED Status: Acute (4) HLD (hyperlipidemia) Code(s): E78.5 - HYPERLIPIDEMIA, UNSPECIFIED Status: Acute (5) HTN (hypertension) Code(s): I10 - ESSENTIAL (PRIMARY) HYPERTENSION Status: Acute (6) Hypothyroid Code(s): E03.9 - HYPOTHYROIDISM, UNSPECIFIED Status: Acute (7) Leg edema Code(s): R60.0 - LOCALIZED EDEMA Status: Acute (8) Obesity Code(s): E66.9 - OBESITY, UNSPECIFIED Status: Acute (9) Osteoarthritis Code(s): M19.90 - UNSPECIFIED OSTEOARTHRITIS, UNSPECIFIED SITE Status: Acute - Plan Still has rales at the bases. Sats are good. Ambulating. Will convert to po abx. Continue to ambulate. Mental status is normal. Anticipate dishcarge in am.
[2019-01-17] MEDS: HumaLOG 300 UNITS/3 ML VIAL SC PRN (13:15)
[2019-01-17] MEDS: Cefdinir 300 MG CAP PO SCH (19:36)
[2019-01-18] MEDS: HYDROcodone/Acetaminophen 7.5/325 mg Tablet PO PRN (01:27)
[2019-01-18] MEDS: Levothyroxine Sodium 125 MCG TAB PO SCH (06:13)
[2019-01-18 07:38] VITALS: BP 128/76; TEMP 98.2
[2019-01-18] MEDS: Bisoprolol Fumarate 5 MG TAB PO SCH (08:39)
[2019-01-18] MEDS: Losartan/Hydrochlorothiazide 100 mg/25 mg Tablet PO SCH (08:39)
[2019-01-18] MEDS: metFORMIN 500 MG TAB PO SCH (08:39)
[2019-01-18] MEDS: Famotidine 20 MG TAB PO SCH (08:39)
[2019-01-18] MEDS: Montelukast Sodium 10 mg Tablet PO SCH (08:39)
[2019-01-18] MEDS: Atorvastatin Calcium 40 MG TAB PO SCH (08:39)
[2019-01-18] MEDS: Cefdinir 300 MG CAP PO SCH (08:40)
[2019-01-18] MEDS: Venlafaxine HCl XR 75 MG CAP PO SCH (08:40)
[2019-01-18] MEDS ORDERED: Azithromycin 250 MG TAB PO SCH (09:00)
--- NOTE | 2019-01-19 02:24 | PQF ---
JORDAN HEMPHILL ERIK [id number] CLINICAL DOCUMENTATION CLARIFICATION FORM: POST DISCHARGE Addendum to original discharge summary date: ____ Late entry note date: __ DATE: 01/19/19 ATTN: Derrick Ryder Please exercise your independent, professional judgment in responding to the clarification form. Clinical indicators are provided on the bottom of this form for your review Can you please further clarify the diagnosis of the patient based on the clinical indicators below? Please check appropriate box(es): [ XX ] Sepsis due to: (Pna, UTI, gangrenous gall bladder, etc.) ____Sepsis diagnosed secondary to PNA [ ] SIRS due to non-infectious process (please specify etiology) [ ] with organ dysfunction [ ] without organ dysfunction [ ] Localized infection without sepsis [ ] Other diagnosis [ ] Unable to determine In addition, please specify: Present on Admission (POA): [ XX ] Yes [ ] No [ ] Unable to determine For continuity of documentation, please document condition throughout progress notes and discharge summary. Thank You. CLINICAL INDICATORS - SIGNS / SYMPTOMS / LABS H and P pg.1- fever, chill, cough Hospitalist PN 01/13 Dr. Pink pg.1- found to be bacteremic with one out of 2 blood cultures being positive for gram negative cocci clusters Hospitalist PN 01/14 Dr. Pink pg.5- if patient fever cannot be broken or bacteremia cannot be sterilized would consider ID Consult Hospitalist PN Dr. Pink pg.1- Patient blood culture found to be Micrococcus, which is most likely consistent with skin contaminant RISK FACTORS Diabetes- H and P pg.1 Hypertension- H and P pg.1 Pneumonia-H and P pg.1 Obesity- H and P pg.4 TREATMENTS: Chest X ray 01/11 Chest /Thorax CTA01/11 IV Fluids-APR IV Antibiotics- APR Blood culture- Microbiology (This form is maintained as a part of the permanent medical record) 2014 [employer]. All Rights Reserved Reji [email or web address] [not provided] MTDD
== END 2019-01-18 11:10 | disposition home or self-care (01) | DRG 871 ==
LOC: ERS 10:49 → T4-A 16:35
PROVIDERS: ADMIT Emergency Medicine; ATTEND Internal Medicine
PROC: 3E0234Z Introduction of Serum, Toxoid and Vaccine into Muscle, Percutaneous Approach (ICD-10-PCS; principal; 2019-01-11)
DX: A41.9 Sepsis, unspecified organism (principal); J18.9 Pneumonia, unspecified organism; Z68.41 Body mass index [BMI] 40.0-44.9, adult; Z23 Encounter for immunization; E11.649 Type 2 diabetes mellitus with hypoglycemia without coma; I10 Essential (primary) hypertension; E78.5 Hyperlipidemia, unspecified; E03.9 Hypothyroidism, unspecified; M19.90 Unspecified osteoarthritis, unspecified site; E66.9 Obesity, unspecified; E11.65 Type 2 diabetes mellitus with hyperglycemia; Z98.51 Tubal ligation status; Z87.891 Personal history of nicotine dependence; Z90.49 Acquired absence of other specified parts of digestive tract; Z79.84 Long term (current) use of oral hypoglycemic drugs; Z79.899 Other long term (current) drug therapy; Z79.890 Hormone replacement therapy
CPT/HCPCS: 36415; 36416; 51701; 71045; 71275; 80048; 80053; 81003; 81015; 83605; 83690; 83880; 85025; 87040; 87086; 87149; 87324; 87449; 87804; 90471; 90662; 93306; 93970; 96361; 96365; 96367; G0008; J0456; J0696; J1630; J2270; J3490; J7050; Q0163; Q9967

== ENCOUNTER 2019-04-29 08:17 | Outpatient (CLI) | payer MEDICARE ==
--- NOTE | 2019-04-29 09:29 | MMO ---
Bilateral MAMMO Bilat Screen [facility]. CLINICAL HISTORY: Patient is 63 years old and is seen for screening. The patient has no family history of breast cancer. The patient has no personal history of cancer. VIEWS: The views performed were: bilateral craniocaudal with tomosynthesis and bilateral mediolateral oblique with tomosynthesis. FILMS COMPARED: The present examination has been compared to prior imaging studies performed at [facility] on 08/18/2012 and 03/31/2015, and at [facility] on 05/17/2004 and 05/29/2005. This study has been interpreted with the assistance of computer-aided detection. MAMMOGRAM FINDINGS: There are scattered fibroglandular densities. Benign calcifications are noted bilaterally. There are no suspicious masses, suspicious calcifications, or new areas of architectural distortion. IMPRESSION: THERE IS NO MAMMOGRAPHIC EVIDENCE OF MALIGNANCY. A ROUTINE FOLLOW-UP MAMMOGRAM IN 1 YEAR IS RECOMMENDED. THE RESULTS OF THIS EXAM WERE SENT TO THE PATIENT. ACR BI-RADS Category 2 - Benign finding MAMMOGRAPHY NOTE: 1. A negative mammogram report should not delay a biopsy if a dominant of clinically suspicious mass is present. 2. Approximately 10% to 15% of breast cancers are not detected by mammography. 3. Adenosis and dense breasts may obscure an underlying neoplasm. Reported by: EMMANUEL STEVENS MD Electonically Signed: [id number]
--- NOTE | 2019-04-29 10:40 | RAD ---
PA AND LATERAL VIEWS CHEST: Date: 04/29/2019 HISTORY: Cough, pneumonia. Comparison made with exam of 01/11/2019. FINDINGS: The heart size is normal. The aorta is tortuous. The lungs are expanded without focal areas of consol idation, pneumothoraces, or pleural effusions. There are degenerative changes in the spine. IMPRESSION: No radiographic evidence of acute cardiopulmonary process. POS: [facility]
--- NOTE | 2019-04-29 11:00 | BD ---
BONE DENSITOMETRY USING DEXA: Date: 04/29/2019 HISTORY: Postmenopausal screening for osteoporosis. Asymptomatic menopausal state. FINDINGS: Lumbar Spine: BMD (g/cm2) L1 1.014 T-Score: 0.2 Z-Score: 1.8 L2 1.148 T-Score: 1.1 Z-Score: 2.9 L3 1.136 T-Score: 0.5 Z-Score: 2.3 L4 1.248 T-Score: 1.7 Z-Score: 3.6 L1-L4 1.140 T-Score: 0.8 Z-Score: 2.6 Femoral Neck: 0.613 T-Score: -2.1 Z-Score: -0.6 Total Femur: 0.750 T-Score: -1.6 Z-Score: -0.3 IMPRESSION: Osteopenia. POS: [facility]
== END 2019-04-29 08:18 | disposition home or self-care (01) ==
LOC: BICMAMMO 08:17
PROVIDERS: ATTEND Family Medicine
DX: Z12.31 Encounter for screening mammogram for malignant neoplasm of breast (principal); Z13.820 Encounter for screening for osteoporosis; Z78.0 Asymptomatic menopausal state; J18.9 Pneumonia, unspecified organism; M85.859 Other specified disorders of bone density and structure, unspecified thigh
CPT/HCPCS: 71046; 77063; 77067; 77080

== ENCOUNTER 2020-01-30 11:34 | Emergency (ER) | payer MEDICARE ==
[2020-01-30 14:24] LABS: Bacteria/HPF None Seen HPF (None Seen); Bilirubin Negative (Negative); Blood, Urine Trace (Negative); Clarity Clear (Clear); Glucose, Urine (Dipstick) Normal (Negative); Ketone, Urine Negative (Negative); Leukocyte 250 Leu/uL (Negative); Nitrite Negative (Negative); Protein, Urine (Dipstick) 70 mg/dL (Neg-Trace); RBC/HPF 0-3 HPF (0-3); Squamous Epithelial 0-3 HPF (0-3); Urobilinogen Normal mg/dL (Less than 2); WBC/HPF 0-3 HPF (0-3)
[2020-01-30 15:30] LABS: #Basophils 0.1 thou/uL (0.0-0.2); #Eosinphils 0.2 thou/uL (0.0-0.7); #Lymphocytes 1.8 thou/uL (1.20-3.40); #Monocytes 0.5 thou/uL (0.11-0.59); #Neutrophils 4.2 thou/uL (1.40-6.50); %Basophils 0.8 % (0.0-1.0); %Eosinophils 2.9 % (0.0-10.0); %Lymphocytes 26.5 % (21.0-51.0); %Monocytes 7.4 % (0.0-10.0); %Neutrophils 62.5 % (42.0-75.0); Hemoglobin 12.3 g/dL (12.0-16.0); Mean Corpuscular HGB CONC 35.1 g/dL (32.0-36.0); Mean Corpuscular Hemoglobin 29.8 pg (27.0-31.0); Mean Corpuscular Volume 84.8 fL (78.0-98.0); Mean Platelet Volume 7.4 fL (7.4-10.4); Platelet Count 249 thou/uL (130-400); RBC Distribution Width 14.3 % (11.5-14.5); Red Blood Cell (RBC) Count 4.14 mill/uL (4.20-5.40); White Blood Cell (WBC) Count 6.8 thou/uL (4.8-10.8)
[2020-01-30 15:56] LABS: ALT (SGPT) 14 U/L (8-55); AST (SGOT) 31 U/L (5-34); Albumin 4.6 g/dL (3.4-4.8); Alkaline Phosphatase 108 U/L (40-110); Anion Gap 16 mmol/L (10-20); BUN (Urea Nitrogen) 7 mg/dL (9.8-20.1); Bilirubin, Total 0.8 mg/dL (0.2-1.2); Calc. Creatinine Clearance 0 mL/min (70-130); Calcium 9.2 mg/dL (7.8-10.44); Carbon Dioxide 31 mmol/L (23-31); Chloride 91 mmol/L (98-107); Globulin 3.9 g/dL (2.4-3.5); Glucose 173 mg/dL (80-115); Protein, Total 8.5 g/dL (6.0-8.3); Sodium 135 mmol/L (136-145)
[2020-01-30 16:04] LABS: Potassium 2.7 mmol/L (3.5-5.1)
[2020-01-30] MEDS ORDERED: Potassium Chloride 20 MEQ TAB ONE (16:24)
--- NOTE | 2020-02-04 10:50 | EKG ---
Test Reason : EMERGENCY EXAM Blood Pressure : / mmHG Vent. Rate : 086 BPM Atrial Rate : 086 BPM P-R Int : 222 ms QRS Dur : 102 ms QT Int : 408 ms P-R-T Axes : 064 -02 241 degrees QTc Int : 488 ms Sinus rhythm with 1st degree A-V block Abnormal ECG Confirmed by HEVER VALERO, MICHAEL Love ([id number]), news videotape editor AUSTEN VAZQUEZ ([id number]) on 02/04/2020 10:49:54 AM Referred By: Confirmed By:MICHAEL KATHLEEN MD
== END 2020-01-30 16:33 | disposition home or self-care (01) ==
LOC: ERS 11:34
DX: E86.0 Dehydration (principal); E11.9 Type 2 diabetes mellitus without complications; I10 Essential (primary) hypertension; Z20.828 Contact with and (suspected) exposure to other viral communicable diseases
CPT/HCPCS: 80053; 81003; 81015; 83605; 84484; 85025; 87086; 93005; 94760

== ENCOUNTER 2020-04-30 09:38 | Outpatient (CLI) | payer MEDICARE | END 2020-04-30 09:39 | disposition home or self-care (01) | LOC: BICMAMMO 09:38 | PROVIDERS: ATTEND Family Medicine | DX: Z12.31 Encounter for screening mammogram for malignant neoplasm of breast (principal) | CPT/HCPCS: 77063; 77067 ==

== ENCOUNTER 2020-07-19 16:12 | Inpatient (IN) | payer MEDICARE ==
[2020-07-19 17:55] LABS: Bacteria/HPF None Seen HPF (None Seen); Bilirubin Negative (Negative); Blood, Urine Trace (Negative); Clarity Clear (Clear); Glucose, Urine (Dipstick) Greater than 1000 mg/dL (Negative); Ketone, Urine 40 mg/dL (Negative); Leukocyte Negative Leu/uL (Negative); Nitrite Negative (Negative); Protein, Urine (Dipstick) 50 mg/dL (Neg-Trace); RBC/HPF 0-3 HPF (0-3); Specific Gravity, Urine 1.043 (1.002-1.036); Squamous Epithelial None Seen HPF (0-3); Urobilinogen Normal mg/dL (Less than 2); WBC/HPF 0-3 HPF (0-3)
[2020-07-19 18:04] LABS: #Lymphocytes 1.1 thou/uL (1.20-3.40); #Monocytes 0.7 thou/uL (0.11-0.59); %Basophils 0.2 % (0.0-1.0); %Eosinophils 0.3 % (0.0-10.0); %Lymphocytes 8.8 % (21.0-51.0); %Monocytes 5.7 % (0.0-10.0); Hemoglobin 15.1 g/dL (12.0-16.0); Mean Corpuscular HGB CONC 33.9 g/dL (32.0-36.0); Mean Corpuscular Hemoglobin 31.4 pg (27.0-31.0); Mean Corpuscular Volume 92.7 fL (78.0-98.0); Mean Platelet Volume 7.3 fL (7.4-10.4); Platelet Count 352 thou/uL (130-400); RBC Distribution Width 14.6 % (11.5-14.5); Red Blood Cell (RBC) Count 4.82 mill/uL (4.20-5.40); White Blood Cell (WBC) Count 12.9 thou/uL (4.8-10.8)
[2020-07-19 18:27] LABS: ALT (SGPT) 141 U/L (8-55); AST (SGOT) 71 U/L (5-34); Albumin 4.3 g/dL (3.4-4.8); Alkaline Phosphatase 595 U/L (40-110); Anion Gap 19 mmol/L (10-20); BUN (Urea Nitrogen) 11 mg/dL (9.8-20.1); Bilirubin, Total 0.7 mg/dL (0.2-1.2); CK (CPK) 22 U/L (29-168); Calc. Creatinine Clearance 0 mL/min (70-130); Calcium 9.7 mg/dL (7.8-10.44); Carbon Dioxide 28 mmol/L (23-31); Chloride 94 mmol/L (98-107); Globulin 3.2 g/dL (2.4-3.5); Glucose 412 mg/dL (80-115); Potassium 3.7 mmol/L (3.5-5.1); Protein, Total 7.5 g/dL (5.8-8.1); Sodium 137 mmol/L (136-145)
[2020-07-19] MEDS ORDERED: Zolpidem Tartrate 5 MG TAB PO PRN (20:55)
[2020-07-19] MEDS ORDERED: Acetaminophen 325 MG TAB PO PRN (20:55)
[2020-07-19] MEDS ORDERED: Ondansetron PF 4 MG/2 ML Vial IVP PRN (20:55)
[2020-07-19] MEDS ORDERED: HYDROcodone/Acetaminophen 7.5/325 mg Tablet PO PRN (20:55)
[2020-07-19 21:14] LABS: Lactic Acid 2.5 mmol/L (0.5-2.2)
[2020-07-19] MEDS ORDERED: HumaLOG 300 UNITS/3 ML VIAL ONE (22:17)
[2020-07-19] MEDS ORDERED: Famotidine 20 MG TAB ONE (22:17)
[2020-07-19] MEDS ORDERED: Heparin 10,000 UNITS/ 10 ML VIAL ONE (22:17)
[2020-07-19] MEDS: Lantus 1000 UNITS/10 ML VIAL SC SCH (22:29)
[2020-07-19] MEDS: Sodium Chloride 0.9% 1,000 ML IV SCH (22:33)
[2020-07-19] MEDS: Famotidine 20 MG TAB PO SCH (22:33)
[2020-07-19] MEDS ORDERED: hydrALAZINE 20 MG/ML VIAL ONE (23:39)
[2020-07-20] MEDS: hydrALAZINE 20 MG/ML VIAL SLOW IVP PRN ×2 (00:21→05:46)
[2020-07-20] MEDS: Heparin 5,000 UNITS/ML VIAL SC SCH ×4 (00:21→22:06)
[2020-07-20 00:37] LABS: SARS-CoV-2 NAA Rapid Test DETECTED (NotDetected)
[2020-07-20] MEDS ORDERED: Labetalol HCl 100 MG/20 ML VIAL SLOW IVP PRN (03:07)
[2020-07-20] MEDS ORDERED: Labetalol HCl 100 MG/20 ML VIAL ONE (03:10)
[2020-07-20] MEDS ORDERED: hydrALAZINE 20 MG/ML VIAL ONE (05:05)
[2020-07-20 05:27] LABS: #Eosinphils 0.1 thou/uL (0.0-0.7); #Lymphocytes 1.2 thou/uL (1.20-3.40); #Monocytes 0.5 thou/uL (0.11-0.59); #Neutrophils 9.5 thou/uL (1.40-6.50); %Basophils 0.2 % (0.0-1.0); %Eosinophils 0.5 % (0.0-10.0); %Lymphocytes 10.3 % (21.0-51.0); %Monocytes 4.5 % (0.0-10.0); %Neutrophils 84.5 % (42.0-75.0); Hemoglobin 13.1 g/dL (12.0-16.0); Mean Corpuscular HGB CONC 33.8 g/dL (32.0-36.0); Mean Corpuscular Hemoglobin 31.2 pg (27.0-31.0); Mean Corpuscular Volume 92.3 fL (78.0-98.0); Mean Platelet Volume 7.4 fL (7.4-10.4); Platelet Count 331 thou/uL (130-400); RBC Distribution Width 14.6 % (11.5-14.5); White Blood Cell (WBC) Count 11.3 thou/uL (4.8-10.8)
[2020-07-20] MEDS: HumaLOG 300 UNITS/3 ML VIAL SC PRN (05:45)
[2020-07-20 05:48] LABS: Anion Gap 13 mmol/L (10-20); BUN (Urea Nitrogen) 10 mg/dL (9.8-20.1); Calc. Creatinine Clearance 127 mL/min (70-130); Calcium 8.4 mg/dL (7.8-10.44); Carbon Dioxide 26 mmol/L (23-31); Chloride 101 mmol/L (98-107); Glucose 392 mg/dL (80-115); Magnesium 1.7 mg/dL (1.6-2.6); Potassium 3.2 mmol/L (3.5-5.1); Sodium 137 mmol/L (136-145)
[2020-07-20] MEDS ORDERED: Famotidine 20 MG TAB ONE (09:56)
[2020-07-20] MEDS: Famotidine 20 MG TAB PO SCH ×2 (10:03→22:06)
[2020-07-20] MEDS: Levothyroxine Sodium 125 MCG TAB PO SCH (10:04)
[2020-07-20] MEDS: Losartan/Hydrochlorothiazide 100 mg/25 mg Tablet PO SCH (10:05)
[2020-07-20] MEDS: Lantus 1000 UNITS/10 ML VIAL SC SCH ×3 (10:28→22:08)
[2020-07-20 10:48] LABS: Follicle Stimulating Hormone Less than 0.05 mIU/mL (See Ranges)
[2020-07-20 13:29] LABS: Luteinizing Hormone Less than 0.09 mIU/mL (See Ranges)
[2020-07-20] MEDS: Sodium Chloride 0.9% 1,000 ML IV SCH (16:21)
[2020-07-20 17:10] VITALS: BMI 41.9
[2020-07-20] MEDS ORDERED: Dextrose 5% in Water 1,000 ML IV PRN (21:15)
[2020-07-20] MEDS ORDERED: HumaLOG 300 UNITS/3 ML VIAL SC PRN (21:15)
[2020-07-20] MEDS ORDERED: Dextrose 50% Abboject 50 ML SYRINGE IVP PRN (21:15)
[2020-07-21] MEDS: HumaLOG 300 UNITS/3 ML VIAL SC PRN ×3 (06:25→16:34)
[2020-07-21] MEDS: Famotidine 20 MG TAB PO SCH ×2 (09:29→20:59)
[2020-07-21] MEDS: Losartan/Hydrochlorothiazide 100 mg/25 mg Tablet PO SCH (09:29)
[2020-07-21] MEDS: Lantus 1000 UNITS/10 ML VIAL SC SCH ×2 (09:30→21:00)
[2020-07-21] MEDS: Levothyroxine Sodium 125 MCG TAB PO SCH (09:30)
[2020-07-21] MEDS: Heparin 5,000 UNITS/ML VIAL SC SCH ×3 (09:31→20:59)
[2020-07-21] MEDS ORDERED: sitaGLIPtin Phosphate 25 MG TAB PO SCH (12:14)
[2020-07-21] MEDS ORDERED: HumaLOG 300 UNITS/3 ML VIAL SC PRN (12:15)
[2020-07-21] MEDS ORDERED: Dextrose 50% Abboject 50 ML SYRINGE SLOW IVP PRN (12:15)
[2020-07-21] MEDS ORDERED: Dextrose 5% in Water 1,000 ML IV PRN (12:15)
[2020-07-21] MEDS: metFORMIN 500 MG TAB PO SCH (16:34)
[2020-07-21] MEDS ORDERED: Permethrin 5% Cream 60 GM TUBE TOP SCH (17:15)
[2020-07-21] MEDS: Furosemide 20 MG/2 ML VIAL SLOW IVP SCH ×2 (17:52→18:39)
[2020-07-21] MEDS ORDERED: Labetalol HCl 100 MG/20 ML VIAL SLOW IVP PRN ×2 (18:07→18:09)
[2020-07-21] MEDS ORDERED: hydrALAZINE 20 MG/ML VIAL SLOW IVP PRN (18:08)
[2020-07-21] MEDS ORDERED: NIFEdipine XL 30 MG TAB PO SCH (18:15)
[2020-07-22 05:05] LABS: #Eosinphils 0.1 thou/uL (0.0-0.7); #Lymphocytes 1.1 thou/uL (1.20-3.40); #Monocytes 0.4 thou/uL (0.11-0.59); #Neutrophils 6.8 thou/uL (1.40-6.50); %Lymphocytes 13.6 % (21.0-51.0); %Monocytes 4.7 % (0.0-10.0); %Neutrophils 80.7 % (42.0-75.0); Hemoglobin 13.4 g/dL (12.0-16.0); Mean Corpuscular HGB CONC 34.5 g/dL (32.0-36.0); Mean Corpuscular Hemoglobin 31.2 pg (27.0-31.0); Mean Corpuscular Volume 90.5 fL (78.0-98.0); Mean Platelet Volume 7.4 fL (7.4-10.4); Platelet Count 337 thou/uL (130-400); RBC Distribution Width 14.2 % (11.5-14.5); Red Blood Cell (RBC) Count 4.28 mill/uL (4.20-5.40); White Blood Cell (WBC) Count 8.4 thou/uL (4.8-10.8)
[2020-07-22 05:50] LABS: Anion Gap 17 mmol/L (10-20); BUN (Urea Nitrogen) 9 mg/dL (9.8-20.1); Calc. Creatinine Clearance 109 mL/min (70-130); Calcium 8.3 mg/dL (7.8-10.44); Carbon Dioxide 29 mmol/L (23-31); Chloride 90 mmol/L (98-107); Glucose 415 mg/dL (80-115); Sodium 133 mmol/L (136-145)
[2020-07-22 05:52] LABS: Potassium 2.7 mmol/L (3.5-5.1)
[2020-07-22] MEDS: Levothyroxine Sodium 125 MCG TAB PO SCH (07:46)
[2020-07-22] MEDS ORDERED: Potassium Chloride 20 MEQ TAB PO SCH (08:00)
[2020-07-22] MEDS ORDERED: Magnesium 2 GM/50 ML 2 GM in Premix Bag 1 BAG IVPB SCH (08:00)
[2020-07-22] MEDS ORDERED: Potassium Chloride 40 MEQ in Sodium Chloride 0.9% 250 ML 250 ML IVPB SCH (08:15)
[2020-07-22] MEDS ORDERED: Lantus 1000 UNITS/10 ML VIAL SC SCH (09:00)
[2020-07-22] MEDS ORDERED: Furosemide 20 MG/2 ML VIAL SLOW IVP SCH (09:00)
[2020-07-22] MEDS ORDERED: NIFEdipine XL 30 MG TAB PO SCH ×2 (09:00)
[2020-07-22] MEDS: Heparin 5,000 UNITS/ML VIAL SC SCH ×2 (09:02→14:58)
[2020-07-22] MEDS: Famotidine 20 MG TAB PO SCH (09:03)
[2020-07-22] MEDS: Losartan/Hydrochlorothiazide 100 mg/25 mg Tablet PO SCH (09:03)
[2020-07-22] MEDS: metFORMIN 500 MG TAB PO SCH (09:03)
[2020-07-22 11:39] VITALS: BP 126/67; TEMP 97.6
[2020-07-22 20:36] LABS: Growth Hormone Less than 0.1 ng/mL (0.0-10.0)
== END 2020-07-22 15:24 | disposition short-term general hospital (02) | DRG 643 ==
LOC: ERS 16:12 → ERHOLD 20:55 → 2SE 07-20 15:41
PROVIDERS: ADMIT Internal Medicine; ATTEND Hospitalist
PROC: 8E0ZXY6 Isolation (ICD-10-PCS; principal; 2020-07-19)
DX: D35.2 Benign neoplasm of pituitary gland (principal); U07.1 COVID-19; J15.9 Unspecified bacterial pneumonia; Z68.41 Body mass index [BMI] 40.0-44.9, adult; T74.01XA Adult neglect or abandonment, confirmed, initial encounter; Z66 Do not resuscitate; I10 Essential (primary) hypertension; F32.9 Major depressive disorder, single episode, unspecified; E66.01 Morbid (severe) obesity due to excess calories; E03.9 Hypothyroidism, unspecified; L89.151 Pressure ulcer of sacral region, stage 1; E11.65 Type 2 diabetes mellitus with hyperglycemia; E78.5 Hyperlipidemia, unspecified; E87.6 Hypokalemia; Z96.649 Presence of unspecified artificial hip joint; Z90.49 Acquired absence of other specified parts of digestive tract; Z91.14 Patient's other noncompliance with medication regimen; Z79.890 Hormone replacement therapy; Z79.899 Other long term (current) drug therapy; B85.0 Pediculosis due to Pediculus humanus capitis; Z79.84 Long term (current) use of oral hypoglycemic drugs
CPT/HCPCS: 36415; 36416; 51701; 70450; 71045; 80048; 80053; 81003; 81015; 82024; 82530; 82533; 82550; 83001; 83002; 83003; 83605; 83735; 84146; 84443; 84484; 85025; 87086; 93005; 94760; J0360; J1644; J1815; J1940; J3475; J3480; J7050; U0002; U0005